=== PATIENT | male | born 1995 | race Caucasian/White ===

== ENCOUNTER 2023-09-05 11:06 | Emergency (ER) | payer BC, SELFPAY ==
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
[2023-09-05 11:18] VITALS: BP 126/80; PULSE 58; RESP 16; TEMP 37.2; O2SAT 100
== END 2023-09-05 11:58 | disposition home or self-care (01) ==
PROVIDERS: Emergency Provider Nurse Practitioner Family
DX: S00.461A Insect bite (nonvenomous) of right ear, initial encounter (principal); W57.XXXA Bitten or stung by nonvenomous insect and other nonvenomous arthropods, initial encounter
CPT/HCPCS: 99203; G0463

== ENCOUNTER 2023-11-08 18:42 | Emergency (ER) | payer BC, SELFPAY ==
[2023-11-08 18:50] VITALS: BP 134/81; PULSE 79; RESP 14; TEMP 37; O2SAT 100
--- NOTE | 2023-11-08 18:51 | ED.SKABFB ---
HPI - Skin/Abscess/Foreign Bdy General Chief complaint: Skin/Abscess/Foreign Body Stated complaint: Hives Time Seen by Provider: 11/08/23 18:51 Source: patient Mode of arrival: ambulatory Limitations: no limitations History of Present Illness HPI narrative: Loco is a 27-year-old male patient presenting to the clinic today with complaints of a hive-like rash. He reports symptoms started a little bit last night. Has gradually gotten worse today. Is under some stress. Has not had any environmental changes, medication changes, or any new foods. Denies any shortness of breath, chest pain, tongue swelling, or drooling. Had hives as a kid 1 other time. Related Data Allergies Allergy/AdvReac Type Severity Reaction Status Date / Time No Known Allergies Allergy Verified 09/05/23 12:02 Review of Systems Review of Systems: Pertinent positives per HPI. Patient denies any fever, chills, headache, visual changes, dizziness, cough, runny nose, sore throat, shortness of breath, chest pain, palpitations, nausea, vomiting, diarrhea, constipation, abdominal pain, or any urinary issues. PMFSH Comments At the time of my signature, I reviewed and agree with the nursing past medical, surgical, social, and family history. There is no relevant family history pertinent to the patient complaint. Exam Narrative: General: Well-developed, well nourished, in no apparent distress Head: Normocephalic, atraumatic. Cardio: Regular rate and rhythm, s1 and s2 normal, no murmur appreciated. Resp: Clear to auscultation bilaterally, no rhonchi, rales, wheezing or rubs. Integumentary: [place], warm, and dry, intact without lesion, red raised hive-like rash to arms, face, legs, and trunk Course Course Emergency Course: Portions of this record may have been created with voice recognition software. Level of Care: Express Care Visit Vital Signs Vital signs: Vital Signs Temperature 37.0 C 11/08/23 18:50 Pulse Rate 79 11/08/23 18:50 Respiratory Rate 14 11/08/23 18:50 Blood Pressure 134/81 11/08/23 18:50 Pulse Oximetry 100 11/08/23 18:50 Oxygen Delivery Room Air 11/08/23 18:50 Temperature 37.0 C 11/08/23 18:50 Pulse Rate 79 11/08/23 18:50 Respiratory Rate 14 11/08/23 18:50 Blood Pressure 134/81 11/08/23 18:50 Pulse Oximetry 100 11/08/23 18:50 Oxygen Delivery Room Air 11/08/23 18:50 Vital signs reviewed MDM - Skin/Abscess/Foreign Bdy MDM Narrative Medical decision making narrative: At the time of visit patient is resting comfortably on the exam table. Patient appears to be nontoxic. Plan: I suspect patient has acute hives. Dexamethasone 10 mg IM given in the clinic today. Will send in prescription for prednisone for him to start tomorrow and Pepcid for him the start tonight. Supportive measures were discussed with the patient and they voiced understanding discharge instructions and agrees to treatment plan. Return precautions reviewed Differential Diagnosis Differential diagnosis: Likely abscess of skin or subcutaneous tissue, urticaria, herpes zoster, cellulitis, eczema, insect bites, impetigo and contact dermatitis Discharge Plan Discharge Clinical Impression: Acute urticaria Patient Disposition: Home, Self-Care Condition: Stable Instructions: Antibiotic Form, Urticaria (ED) Additional Instructions: Dexamethasone 10 mg IM given in the clinic today Take prednisone as directed-start on 11/09/2023 Avoid hot showers Avoid scratching as this can cause a secondary infection May take [id number] antihistamine such as Zyrtec or Claritin daily May take 40 mg of Pepcid as prescribed May take Benadryl 25-50mg every 6 hours as needed for itching. Follow up with your PCP in 3-5 days if symptoms persist or sooner if they worsen Go to the Emergency Room if symptoms worsen- fever, rash spreading with treatment, shortness of breath, tongue swelling, drooling, or chest pain
[2023-11-08] MEDS: dexAMETHasone SOD PHOS INJ 10 MG/ML 1 ML VIAL IM (18:59)
== END 2023-11-08 19:50 | disposition home or self-care (01) ==
PROVIDERS: Emergency Provider Nurse Practitioner Family
DX: L50.9 Urticaria, unspecified (principal)
CPT/HCPCS: 96372; 99213; G0463; J1100